=== PATIENT | female | born 1990 | race Caucasian/White ===

== ENCOUNTER → 2022-09-30 | Outpatient (CLI) | payer OTHER, MEDICAID, SELFPAY ==
[2022-10-05 16:09] LABS: HPV APTIMA, High Risk Negative (Negative)
== END | disposition home or self-care (01) ==
LOC: LABSPEC 13:46
PROVIDERS: Referring Provider Nurse Practitioner Women's Health; Visit Provider Nurse Practitioner Women's Health
DX: Z12.4 Encounter for screening for malignant neoplasm of cervix (principal)
CPT/HCPCS: 87624; 88175; G0145

== ENCOUNTER → 2022-10-09 | Outpatient (CLI) | payer OTHER, MEDICAID, SELFPAY | END | disposition home or self-care (01) | LOC: LAB 14:44 | PROVIDERS: PCP Family Medicine; Referring Provider Nurse Practitioner Women's Health; Visit Provider Nurse Practitioner Women's Health | DX: N92.6 Irregular menstruation, unspecified (principal) | CPT/HCPCS: 36415 ==

== ENCOUNTER → 2022-10-26 | Outpatient (CLI) | payer OTHER, MEDICAID, SELFPAY ==
[2022-10-26 13:32] LABS: Progesterone Level 2.15 ng/mL (See Comment)
[2022-10-26 13:36] LABS: Prolactin 13.8 ng/mL; Thyroid Stim Hormone (TSH) 1.72 uIU/mL (0.358-3.74)
[2022-11-01 01:06] LABS: Anti-Cardiolipin Ab, IgA, Qn < 9 APL U/mL (0-11); Anti-Cardiolipin Ab, IgG, Qn < 9 GPL U/mL (0-14); Anti-Cardiolipin Ab, IgM, Qn < 9 MPL U/mL (0-12); Beta-2-Glycoprotein I IgA <9 (0-25); Beta-2-Glycoprotein I IgG <9 (0-20); Beta-2-Glycoprotein I IgM <9 (0-32); Dilute Prothrombin Time (dPT) 34.3 sec (0.0-47.6); Dilute Russell Viper Venom 38.6 sec (0.0-47.0); Interpretation Comment: (.); PTT-LA 33.6 sec (0.0-43.5); Testosterone Free 1.1 pg/mL (0.0-4.2); Thrombin Time 15.8 sec (0.0-23.0); dPT Confirm Ratio 0.98 Ratio (0.00-1.34)
== END | disposition home or self-care (01) ==
LOC: LAB 12:36
PROVIDERS: PCP Family Medicine; Referring Provider Nurse Practitioner Women's Health; Visit Provider Nurse Practitioner Women's Health
DX: N96 Recurrent pregnancy loss (principal); E28.2 Polycystic ovarian syndrome; Z87.59 Personal history of other complications of pregnancy, childbirth and the puerperium
CPT/HCPCS: 36415; 82627; 84144; 84146; 84402; 84443; 86146; 86147; 82626

== ENCOUNTER → 2022-11-26 | Outpatient (CLI) | payer OTHER, MEDICAID, SELFPAY ==
[2022-11-26 14:18] LABS: Progesterone Level 0.82 ng/mL (See Comment)
== END | disposition home or self-care (01) ==
LOC: LAB 12:59
PROVIDERS: PCP Family Medicine; Referring Provider Nurse Practitioner Women's Health; Visit Provider Nurse Practitioner Women's Health
DX: E28.2 Polycystic ovarian syndrome (principal)
CPT/HCPCS: 36415; 84144

== ENCOUNTER → 2023-01-28 | Outpatient (CLI) | payer MEDICAID, SELFPAY ==
[2023-01-28 11:11] LABS: Progesterone Level 20.43 ng/mL (See Comment)
== END | disposition home or self-care (01) ==
PROVIDERS: PCP Family Medicine; Referring Provider Nurse Practitioner Women's Health; Visit Provider Nurse Practitioner Women's Health
DX: N97.0 Female infertility associated with anovulation (principal)
CPT/HCPCS: 36415; 84144

== ENCOUNTER → 2023-02-26 | Outpatient (CLI) | payer MEDICAID, SELFPAY ==
[2023-02-26 13:56] LABS: Progesterone Level 21.51 ng/mL (See Comment)
== END | disposition home or self-care (01) ==
LOC: LAB 12:16
PROVIDERS: PCP Family Medicine; Referring Provider Nurse Practitioner Women's Health; Visit Provider Nurse Practitioner Women's Health
DX: N97.0 Female infertility associated with anovulation (principal)
CPT/HCPCS: 36415; 84144